=== PATIENT | male | born 1995 | race Caucasian/White ===

== ENCOUNTER 2017-07-23 09:05 | Emergency (ER) | payer SELFPAY ==
[~2017-07-23] VITALS: Ht 165.1 cm; Wt 75.0 kg
[~2017-07-23 09:05] MED LIST: DICL50 PO
[2017-07-23 09:17] VITALS: BP 150/78; PULSE 69; RESP 20; O2SAT 98
--- NOTE | 2017-07-23 09:37 | PD ---
HPI Chief Complaint: Psychiatric Symptoms Time Seen by Provider: 09:31 Travel History International Travel<30 days: No Contact w/Intl Traveler<30days: No Traveled to known affect area: No History of Present Illness HPI 22-year-old male arrives as a Little Act. Evidently he broke up with his girlfriend. Subsequent distress reported. Patient denies suicidal/homicidal ideation. The patient states he has a full-time job. Location neuropsychiatric. Severity moderate. Unknown modifying factor. PFSH Past Medical History ADHD: Yes Diminished Hearing: No Social History Alcohol Use: No Tobacco Use: Yes ( ) Substance Use: No Allergies-Medications (Allergen,Severity, Reaction): Coded Allergies: No Known Allergies (Unverified , 06/23/13) Reported Meds & Prescriptions Reported Meds & Active Scripts Active Review of Systems Except as stated in HPI: all other systems reviewed are Neg General / Constitutional: No: Fever Eyes: No: Diploplia HENT: No: Headaches, Vertigo, Lightheadedness Cardiovascular: No: Palpitations Physical Exam Narrative GENERAL: 22-year-old male well-nourished well-developed cooperative Vital Signs Date Time Temp Pulse Resp B/P (MAP) Pulse Ox O2 Delivery O2 Flow Rate FiO2 07/23/17 09:17 98.6 69 20 150/78 (102) 98 SKIN: Warm and dry. HEAD: Atraumatic. Normocephalic. EYES: Pupils equal and round. No scleral icterus. No injection or drainage. ENT: No nasal bleeding or discharge. Mucous membranes pink and moist. NECK: Trachea midline. No JVD. CARDIOVASCULAR: Regular rate and rhythm. RESPIRATORY: No accessory muscle use. Clear to auscultation. Breath sounds equal bilaterally. GASTROINTESTINAL: Abdomen soft, non-tender, nondistended. Hepatic and splenic margins not palpable. MUSCULOSKELETAL: Extremities without clubbing, cyanosis, or edema. No obvious deformities. NEUROLOGICAL: Awake and alert. No obvious cranial nerve deficits. Motor grossly within normal limits. Five out of 5 muscle strength in the arms and legs. Normal speech. PSYCHIATRIC: Appropriate mood and affect; insight and judgment normal. Data Data Last Documented VS Vital Signs Date Time Temp Pulse Resp B/P (MAP) Pulse Ox O2 Delivery O2 Flow Rate FiO2 07/23/17 09:17 69 20 150/78 (102) 98 Orders Orders Ed Discharge Order (07/23/17 09:37) [facility] Medical Decision Making Medical Screen Exam Complete: Yes Emergency Medical Condition: Yes Differential Diagnosis anxiety, SI, HI Narrative Course Pt patient's Little Act lifted by me. He has no suicidal or homicidal ideation. He is seen here before for psychiatric complaints and psychiatric evaluations at that time also revealed no history of suicidal attempt/ideation or homicidality. The patient is gainfully employed and is eager to leave in order to make it to work. In this scenario it is unlikely that he poses a threat to himself or others or that staying here for psychiatric evaluation would stand to benefit the patient. Diagnosis Primary Impression: Interpersonal relationship problem without mental disorder Referrals: [facility] days Med/Other Pt SpecificInfo: No Change to Meds Disposition: 01 DISCHARGE HOME Condition: Stable Silas Mcadams MD Jul 23, 2017 09:37
== END 2017-07-23 10:06 | disposition home or self-care (01) ==
LOC: NEPD 09:05
DX: Z63.0 Problems in relationship with spouse or partner (principal); F90.9 Attention-deficit hyperactivity disorder, unspecified type; Z72.0 Tobacco use
CPT/HCPCS: 99284